=== PATIENT | female | born 1980 | race Two or more races ===

== ENCOUNTER 2021-04-09 12:45 | Inpatient (IN) | payer OTHER ==
[~2021-04-09] VITALS: Ht 160 cm; Wt 106.1 kg
[2021-04-09] MEDS ORDERED: KETO10TA2 PO ×2 (15:49→15:55)
[2021-04-09] MEDS ORDERED: ALPRAZOLAM XR1 MG PO (15:49)
== END 2021-04-12 09:21 | disposition home or self-care (01) | DRG 741 ==
LOC: O/R 04-11 06:52 → SURH 04-11 12:45 → SURG 04-11 23:40
PROVIDERS: ADMIT Obstetrics & Gynecology Gynecologic Oncology; ATTEND Obstetrics & Gynecology Gynecologic Oncology
PROC: 0UT24ZZ Resection of Bilateral Ovaries, Percutaneous Endoscopic Approach (ICD-10-PCS; 2021-04-11)
PROC: 0UT74ZZ Resection of Bilateral Fallopian Tubes, Percutaneous Endoscopic Approach (ICD-10-PCS; 2021-04-11)
PROC: 07BC4ZZ Excision of Pelvis Lymphatic, Percutaneous Endoscopic Approach (ICD-10-PCS; 2021-04-11)
PROC: 0UT94ZZ Resection of Uterus, Percutaneous Endoscopic Approach (ICD-10-PCS; principal; 2021-04-11 14:15)
DX: C54.1 Malignant neoplasm of endometrium (principal); R59.9 Enlarged lymph nodes, unspecified; N83.291 Other ovarian cyst, right side; N83.292 Other ovarian cyst, left side